=== PATIENT | male | born 1980 | race Two or more races ===

== ENCOUNTER 2021-02-20 07:48 | Day surgery (SDC) | payer BC | END 2021-02-20 09:52 | disposition home or self-care (01) | LOC: ORSCSDS 07:48 | PROC: 01N54ZZ Release Median Nerve, Percutaneous Endoscopic Approach (ICD-10-PCS; principal; 2021-02-20) | DX: G56.02 Carpal tunnel syndrome, left upper limb (principal); E66.9 Obesity, unspecified; Z68.30 Body mass index [BMI] 30.0-30.9, adult; Z79.899 Other long term (current) drug therapy ==

== ENCOUNTER 2021-03-08 08:50 | Day surgery (SDC) | payer BC ==
[~2021-03-08] VITALS: Ht 182.9 cm; Wt 101.6 kg
[~2021-03-08 08:50] MED LIST: ARIP10 PO; Adderall 5mg tab5 MG PO; BUPR100 PO; CEPH500 PO; CYCL10 PO; ESCI20 PO; HYDACE5 PO; MONT10T PO; RXTRAM50 PO; SULTRIDS PO; TRAM50 PO; ZOLOFT50 MG PO
== END 2021-03-08 11:06 | disposition home or self-care (01) ==
LOC: ORSCSDS 08:50
PROVIDERS: Orthopaedic Surgery
PROC: 01N54ZZ Release Median Nerve, Percutaneous Endoscopic Approach (ICD-10-PCS; principal; 2021-03-08 10:00)
DX: G56.01 Carpal tunnel syndrome, right upper limb (principal); I10 Essential (primary) hypertension; F32.9 Major depressive disorder, single episode, unspecified; E66.9 Obesity, unspecified; Z68.30 Body mass index [BMI] 30.0-30.9, adult
CPT/HCPCS: J2250; J2704; J3010